=== PATIENT | male | born 1965 | race Two or more races ===

== ENCOUNTER 2024-10-18 07:20 | Outpatient (CLI) | payer OTHER | END 2024-10-18 07:26 | disposition home or self-care (01) | LOC: NUCLEAR 07:20 | PROVIDERS: ATTEND Urology | DX: I20.9 Angina pectoris, unspecified (principal) ==

== ENCOUNTER 2024-12-09 09:00 | Inpatient (IN) | payer OTHER ==
[~2024-12-09] VITALS: Ht 167.6 cm; Wt 68.0 kg
[2024-12-09] MEDS ORDERED: ZESTRIL10 M1 PO (09:49)
[2024-12-09] MEDS ORDERED: ROSUVASTATIN CAL5 MG PO (09:49)
[2024-12-09 09:53] VITALS: BP 114/76
[2024-12-09 09:55] LABS: BASO % 0.8 % (0.1-1.2); EOS # 0.27 (0.04-0.54); EOS % 5.2 % (0.7-7.0); HEMATOCRIT 43.3 % (40.1-51.0); HEMOGLOBIN 14.9 g/dL (13.7-17.5); LYMPH # 1.43 (1.18-3.74); LYMPH % 27.3 % (19.3-53.1); MEAN CORPUSCULAR HEMOGLOBIN 29.8 pg (25.6-32.2); MONO # 0.34 (0.24-0.82); MONO % 6.5 % (4.7-12.5); NEUT # 3.13 (1.56-6.13); NEUT % 59.8 % (34.0-71.1); PLATELET COUNT 209 K/uL (163-369); RED CELL DISTRIBUTION WIDTH 13.1 % (11.6-14.4)
[2024-12-09 10:15] LABS: COVID-19 AG NEGATIVE (NEGATIVE)
[2024-12-09 10:31] LABS: INR 1.02; PARTIAL THROMBOPLASTIN TIME 26.5 SECONDS (22.0-34.0); PROTHROMBIN TIME 11.1 SECONDS (9.0-11.5)
[2024-12-09 10:38] LABS: CREATININE SERUM 0.83 mg/dL (0.70-1.30); GFR 95.16; POTASSIUM 4.26 mEq/L (3.5-5.1)
[2024-12-09 11:07] LABS: RH NEGATIVE
[2024-12-17] MEDS ORDERED: CEFAZOLIN SODIUM 1,000 MG VIAL ONE ×2 (06:12→18:15)
[2024-12-17] MEDS ORDERED: ENOXAPARIN SODIUM 40 MG/0.4 ML SYRINGE SUBCUTANEO ONE (06:12)
[2024-12-17] MEDS ORDERED: HEMOSTATIC MATRIX 1 KIT KIT TOP ONE (08:37)
[2024-12-17] MEDS ORDERED: SURGIFLO APPLICATOR 1 EACH APPL TOP ONE (08:37)
[2024-12-17] MEDS ORDERED: LISINOPRIL10 MG (10:25)
[2024-12-17] MEDS ORDERED: TAMSULOSIN HCL0.4 MG (10:25)
[2024-12-17] MEDS ORDERED: ROSUVASTATIN CAL5 MG (10:25)
[2024-12-17] MEDS ORDERED: SUGAMMADEX SODIUM 200 MG/2 ML VIAL IV ONE (11:42)
[2024-12-17] MEDS ORDERED: MORPHINE SULFATE 4 MG/ML VIAL IV ONE (13:50)
[2024-12-17] MEDS ORDERED: MORPHINE SULFATE 2 MG/ML CARTRIDGE IV PRN (15:00)
[2024-12-17] MEDS ORDERED: DEXTROSE 5 %-0.45 % SOD CHLORD 1,000 ML IV SCH (15:00)
[2024-12-17] MEDS ORDERED: ONDANSETRON HCL 2 MG/ML VIAL IV PRN (15:00)
[2024-12-17] MEDS ORDERED: SIMETHICONE 125 MG CAPSULE PO SCH (17:00)
[2024-12-17] MEDS ORDERED: FAMOtidine 20 MG TABLET PO SCH (17:00)
[2024-12-17] MEDS ORDERED: CEFAZOLIN SODIUM 1,000 MG VIAL IV SCH (17:00)
[2024-12-17] MEDS ORDERED: DOCUSATE SODIUM 100MG CAP PO SCH (17:00)
[2024-12-18 01:01] VITALS: BP 114/73; O2SAT 97
[2024-12-18 08:17] LABS: BASO % 0.4 % (0.1-1.2); EOS # 0.02 (0.04-0.54); EOS % 0.2 % (0.7-7.0); HEMATOCRIT 38.1 % (40.1-51.0); HEMOGLOBIN 13.5 g/dL (13.7-17.5); LYMPH # 1.01 (1.18-3.74); LYMPH % 9.9 % (19.3-53.1); MEAN CORPUSCULAR HEMOGLOBIN 30.7 pg (25.6-32.2); MONO # 0.74 (0.24-0.82); MONO % 7.3 % (4.7-12.5); NEUT # 8.34 (1.56-6.13); NEUT % 81.8 % (34.0-71.1); PLATELET COUNT 195 K/uL (163-369); RED CELL DISTRIBUTION WIDTH 12.9 % (11.6-14.4)
[2024-12-18 08:37] LABS: CALCIUM 8.5 mg/dL (8.5-10.1); CREATININE SERUM 0.77 mg/dL (0.70-1.30); GFR 103.76; POTASSIUM 3.97 mEq/L (3.5-5.1)
[2024-12-18 09:34] VITALS: BP 108/68; O2SAT 95
[2024-12-18 16:00] VITALS: BP 114/69; O2SAT 97
[2024-12-18] MEDS ORDERED: OxyCODONE HCL 5 MG TABLET (ROXICODONE) PO PRN (19:15)
[2024-12-18] MEDS ORDERED: ACETAMINOPHEN 325 MG TABLET PO PRN (19:15)
[2024-12-19 00:51] VITALS: BP 133/78; O2SAT 100
[2024-12-19 08:14] VITALS: BP 113/67; O2SAT 97
[2024-12-19] MEDS ORDERED: LISINOPRIL 10 MG TABLET PO SCH (09:00)
== END 2024-12-19 16:56 | disposition home or self-care (01) | DRG 708 ==
LOC: O/R 12-17 05:08 → SURH 12-17 07:00
PROVIDERS: ADMIT Urology; ATTEND Urology
PROC: 8E0W4CZ Robotic Assisted Procedure of Trunk Region, Percutaneous Endoscopic Approach (ICD-10-PCS; 2024-12-17)
PROC: 0VT04ZZ Resection of Prostate, Percutaneous Endoscopic Approach (ICD-10-PCS; principal; 2024-12-17 07:00)
DX: C61 Malignant neoplasm of prostate (principal); I10 Essential (primary) hypertension